=== PATIENT | male | born 1960 | race Caucasian/White ===

== ENCOUNTER 2020-02-02 18:55 | Emergency (ER) | payer BC ==
[2020-02-02] MEDS ORDERED: Sodium Chloride 0.9% 100 ML ONE (19:42)
[2020-02-02] MEDS ORDERED: Acetaminophen 500 MG TAB ONE (19:42)
[2020-02-02] MEDS ORDERED: Dexamethasone 10 MG/ML VIAL ONE (19:42)
[2020-02-02] MEDS ORDERED: cefTRIAXone\\ROCEPHIN 1 GM VIAL ONE (19:42)
[2020-02-02] MEDS ORDERED: Aspirin 325 MG TAB ONE (19:42)
[2020-02-02] MEDS ORDERED: Sodium Chloride 0.9% 250 ML 250 ML ONE (19:43)
[2020-02-02] MEDS ORDERED: Azithromycin 500 MG VIAL ONE (19:43)
--- NOTE | 2020-02-02 19:50 | RAD ---
Portable frontal chest radiograph: 02/02/2020 COMPARISON: 06/02/2011 HISTORY: Shortness of breath, dyspnea FINDINGS: There is extensive interstitial and alveolar opacity/groundglass opacity in bilateral perih ilar regions and both lung bases. No pneumothorax or large volume pleural effusion. IMPRESSION: Extensive interstitial and alveolar opacity suspicious for bilateral Covid pneumonia.
[2020-02-02 20:30] LABS: ALT (SGPT) 24 U/L (8-55); AST (SGOT) 41 U/L (5-34); Albumin 3.6 g/dL (3.5-5.0); Alkaline Phosphatase 48 U/L (40-110); Anion Gap 19 mmol/L (10-20); BUN (Urea Nitrogen) 25 mg/dL (8.4-25.7); Bilirubin, Total 0.5 mg/dL (0.2-1.2); CK (CPK) 266 U/L (30-200); Calc. Creatinine Clearance 0 mL/min (70-130); Calcium 8.3 mg/dL (7.8-10.44); Carbon Dioxide 19 mmol/L (22-29); Chloride 105 mmol/L (98-107); Estimated GFR-MDRD 54; Globulin 3.7 g/dL (2.4-3.5); Glucose 150 mg/dL (70-105); Potassium 4.8 mmol/L (3.5-5.1); Protein, Total 7.3 g/dL (6.0-8.3); Sodium 138 mmol/L (136-145)
[2020-02-02 21:01] LABS: White Blood Cell (WBC) Count 6.9 thou/uL (4.8-10.8)
[2020-02-02 21:02] LABS: Hemoglobin 15.7 g/dL (14.0-18.0); Mean Corpuscular HGB CONC 31.6 g/dL (32.0-36.0); Mean Corpuscular Hemoglobin 30.6 pg (27.0-31.0); Mean Corpuscular Volume 97.1 fL (78.0-98.0); Platelet Count 150 thou/uL (130-400); RBC Distribution Width 12.6 % (11.5-14.5); Red Blood Cell (RBC) Count 5.13 mill/uL (4.70-6.10)
[2020-02-02 21:03] LABS: Manual Diff?? YES; Mean Platelet Volume 9.5 fL (7.4-10.4)
[2020-02-02 21:04] LABS: Band 5 % (5-11); Eosinophils 1 % (0-10); Lymphocytes 7 % (21-51); MDiff Complete? YES; Monocytes 5 % (0-10); Neutrophil 87 % (42-75)
== END 2020-02-02 20:05 | disposition short-term general hospital (02) ==
LOC: MADERS 18:55
DX: U07.1 COVID-19 (principal); J96.91 Respiratory failure, unspecified with hypoxia; E78.5 Hyperlipidemia, unspecified; I10 Essential (primary) hypertension; E66.9 Obesity, unspecified; M10.9 Gout, unspecified; Z79.899 Other long term (current) drug therapy
CPT/HCPCS: 71045; 80053; 82550; 83605; 84484; 85025; 85379; 86140; 93005; 96374; 96375; J0456; J0696; J1100; J3490; J7050